=== PATIENT | male | born 1995 | race Two or more races ===

== ENCOUNTER 2024-10-20 18:52 | Emergency (ER) | payer BC, OTHER ==
[~2024-10-20] VITALS: Ht 180.3 cm; Wt 109.3 kg
--- NOTE | 2024-10-20 19:06 | ED.PDOC ---
Back pain HPI HPI Comments Male presents to the ED chief complaint right elbow swelling and pain. Patient states sudden onset of right elbow swelling and pain proximally one week ago he reports no known injury he denies fever or chills. Chief Complaint: Upper Extremity Time Seen by MD: 19:02 Reviewed Notes: Nurses Notes, Medications, Allergies Allergies: Coded Allergies: NO KNOWN ALLERGIES (Unverified , 10/20/24) Information Source: Patient Mode of Arrival: Ambulatory Past Medical History PAST MEDICAL HISTORY: Denies Surgical History: Denies all surgeries Family History Family History: Reviewed,noncontributory to illness Social History Smoker: Non-Smoker Alcohol: Denies ETOH Use Drugs: Denies Drug Use All Other Systems: Reviewed and Negative (see hpi) Physical Exam General Appearance: No Apparent Distress, Normal HEENT: Pharynx Normal Neck: Full Range of Motion, Non-Tender Respiratory: Lungs Clear, No Respiratory Distress, Normal Breath Sounds Cardiovascular: No Murmur, Normal Peripheral Pulses, Regular Rate/Rhythm Breast Exam: Deferred Gastrointestinal: Non Tender, Soft Genitalia: Deferred Pelvic: Deferred Rectal: Deferred Extremities: Normal capillary refill, Normal range of motion Musculoskeletal : Location: Right Extremity Location: Elbow (MODERATE TENDERNESS AND EDEMA NO WARMTH OVER ELBOW NO NOTED OPEN LESIONS OR DRAINAGE OR ERYTHEMA STRENGTH AND SENSATION MOTION INTACT) Apperance: Normal Neurologic: Alert, No Motor Deficits, Normal Affect, Normal Mood, No Sensory Deficits Cerebellar Function: Normal Reflexes: NOT DONE Skin: Dry, Normal Color, Warm Lymphatic: No Adenopathy Was a procedure done? Was a procedure done?: Yes Sedation Sedation?: No Informed consent obtained: Yes Other Procedure Procedure DRAINED RIGHT OLECRANON BURSA Indication SWELLING AND PAIN Anesthetic LIDOCAINE 1% Prep IODINE Success TRAINED APROXIMALLY 5 CC OF CLEAR STRAW BURSA FLUID. INJECTED 0.5 CC OF DECADRON TOTAL OF 5 MG INTRA BURSA Informed consent obtained: Yes Risks, benefits, and alternati: Yes Notes PATIENT TOLERATED WELL WITH MINIMAL Back Pain Differential Dx Differential Diagnosis: Fracture, Musculoskeletal Pain X-Ray, Labs, Meds, VS Vital Signs Date Time Temp Pulse Resp B/P (MAP) Pulse Ox O2 Delivery O2 Flow Rate FiO2 10/20/24 21:16 61 18 97 Room Air 10/20/24 21:07 98.5 61 18 147/87 (107) 97 98.5 10/20/24 18:54 98.0 61 18 150/92 96 98.0 X-Ray, Labs, Meds, VS Comment SEE PROCEDURE NOTE. RIGHT ELBOW X-RAY SHOWS NO ACUTE FRACTURES OSSEOUS LESIONS OR DISLOCATIONS. Time of 1ST Reevaluation: 19:04 Reevaluation 1ST: Unchanged Time of 2ND Reevaluation: 21:37 Reevaluation 2ND: Improved Patient Education/Counseling: Diagnosis, Treatment, Prognosis, Need For Follow Up Family Education/Counseling: No Family Present SEPSIS Sepsis Screen Date sepsis recognized/suspect: Oct 20, 2024 Time Sepsis recognized/suspect: 1855 Recent Procedure: No On Antibiotic Therapy: No Respiratory Rate >20: No Heart Rate >90: No Temp<36 C (96.8 F) or >38.3 C: No SBP <90 or MAP <65 mmHG: No New Acute Mental Status Change: No Is the patient on CPAP, BIPAP,: No Physician Orders R Elbow 3 View Xray (10/20/24 19:03) Vital Signs Date Time Temp Pulse Resp B/P (MAP) Pulse Ox O2 Delivery O2 Flow Rate FiO2 10/20/24 21:16 61 18 97 Room Air 10/20/24 21:07 98.5 61 18 147/87 (107) 97 98.5 10/20/24 18:54 98.0 61 18 150/92 96 98.0 Departure 1 Departure Time of Disposition: 21:37 Impression: Primary Impression: Olecranon bursitis, right elbow Disposition: 01 HOME / SELF CARE / HOMELESS Condition: Stable Discharged With: Self Critical Care Note Critical Care Time?: No Stability Stability form required: HARSH Reese Oct 20, 2024 19:06
--- NOTE | 2024-10-20 20:23 | DVH ---
EXAMINATIONS: 3 views of the right elbow CLINICAL HISTORY: right elbow pain/swelling COMPARISON: None Findings and impression: Dorsal soft tissue swelling overlying the olecranon. This may be sequelae of bursitis. Otherwise no grossly displaced fractures or dislocations are evident on the provided views. No defin ite joint effusion. If the patient has continued symptoms clinically suspicious for radiographically occult fracture, fol low-up radiographs could be obtained in 7-10 days time.
[2024-10-20 21:07] VITALS: BP 147/87; TEMP 98.5
[2024-10-20 21:16] VITALS: PULSE 61; RESP 18; O2SAT 97
== END 2024-10-20 22:19 | disposition home or self-care (01) ==
LOC: ER 18:52
DX: M70.21 Olecranon bursitis, right elbow (principal)
CPT/HCPCS: 73080; J1100